=== PATIENT | female | born 1995 | race Caucasian/White ===

== ENCOUNTER 2021-09-04 17:15 | Emergency (ER) | payer MEDICAID ==
[~2021-09-04] VITALS: Ht 167.6 cm; Wt 59.0 kg
[2021-09-04 17:19] VITALS: BP 113/86
--- NOTE | 2021-09-04 17:24 | NUR ---
PT TO WAIT IN LOBBY. PT STATED SHE EXPERINCE 10 SECOND SYNCOPAL EPISOIDE AT HOME. CURRENT BP 113/86, HR 74, PT A&OX4, AND ABLE TO AMBULATE
--- NOTE | 2021-09-04 18:52 | NUR ---
PT AMBULATED TO BED 5
--- NOTE | 2021-09-04 19:14 | NUR ---
25 Y/O F BIBA FROM HOME, PATIENT PRESENTS TO ED WITH ANXIETY THAT STARTED TODAY. PT STATES SHE WAS PRESCRIBED PROMETHAZINE AND PREDNISONE, STATES SHE ALSO "TOOK A DAB" (CONCENTRATED THC) FOLLOWING MEDICATION. STATES SHE HAS BEEN FEELING VERY JITTERY SINCE WITH SHARP ABD PAIN. DENIES N/V/D, DYSURIA, AND HEMATURIA; SKIN IS PINK/WARM/DRY; AAOX4 WITH EVEN AND STEADY GAIT; LUNGS CLEAR BL; HR EVEN AND REGULAR; PT DENIES ANY FEVER, CP, SOB, OR COUGH AT THIS TIME; PATIENT STATES PAIN OF 6/10 AT THIS TIME; VSS; PATIENT POSITIONED FOR COMFORT; HOB ELEVATED; BEDRAILS UP X2; BED DOWN. ER MD MADE AWARE OF PT STATUS. PMH: ASTHMA ALLERGY: PENICILLIN (HIVES) MED: PREDNISONE, PROMETHAZINE
--- NOTE | 2021-09-04 19:40 | NUR ---
PT SITTING ON GURNEY APPEARS CALM. STATES, "I FEEL BETTER, I WONT DO THAT AGAIN. IM JUST TIRED NOW." NAD NOTED. RRE/U HEART RRR. DENIES N/V/D. PENDING DISPO.
[2021-09-04 19:42] LABS: BASOPHILS % (AUTO) 0.1 % (0.0-2.0); HEMATOCRIT 41.6 % (36-48); HEMOGLOBIN 14.2 g/dL (12.0-16.0); LYMPHOCYTES % (AUTO) 8.9 % (20.5-51.1); MEAN CORPUSCULAR HEMOGLOBIN 31 pg (27-31); MEAN CORPUSCULAR HGB CONC 34 g/dL (33-37); MEAN CORPUSCULAR VOLUME 90.4 fL (80-94); MONOCYTES # (AUTO) 0.7 K/uL (0.8-1.0); MONOCYTES % (AUTO) 6.6 % (1.7-9.3); NEUTROPHILS # (AUTO) 9.1 K/uL (1.8-7.7); NEUTROPHILS % (AUTO) 84.4 % (42.2-75.2); PLATELET COUNT (AUTO) 370 K/uL (140-450); RED CELL DISTRIBUTION WIDTH 12.6 % (11.6-13.7); WHITE BLOOD COUNT (AUTO) 10.8 K/uL (4.8-10.8)
[2021-09-04 19:59] LABS: ALBUMIN 3.9 g/dL (3.4-5.0); ANION GAP 10.6 (8-16); CARBON DIOXIDE 29.2 mmol/L (21-32); CREATININE 0.8 mg/dL (0.6-1.3); POTASSIUM 3.8 mmol/L (3.5-5.1); TOTAL BILIRUBIN 0.3 mg/dL (0.0-1.0)
--- NOTE | 2021-09-04 20:15 | NUR ---
PT UP TO BATHROOM FOR URINE SAMPLE
[2021-09-04 21:15] VITALS: BP 112/73
--- NOTE | 2021-09-04 21:18 | NUR ---
Patient discharged with v/s stable. Written and verbal after care instructions given and explained. Patient verbalized understanding. Ambulatory with steady gait. All questions addressed prior to discharge. Advised to follow up with PMD.
== END 2021-09-04 21:18 | disposition home or self-care (01) ==
LOC: MED 17:15
DX: R55 Syncope and collapse (principal); F12.90 Cannabis use, unspecified, uncomplicated; J45.909 Unspecified asthma, uncomplicated; Z88.0 Allergy status to penicillin
CPT/HCPCS: 36415; 80053; 81025; 85025; 93005; 99284